=== PATIENT | female | born 2000 | race Two or more races ===

== ENCOUNTER 2023-01-27 07:08 | Emergency (ER) | payer SELFPAY ==
[~2023-01-27] VITALS: Ht 157.5 cm; Wt 48.9 kg
[2023-01-27 07:44] VITALS: BP 129/95
[2023-01-27] MEDS ORDERED: ACETAMINOPHEN 500 MG TAB PO ONE (08:00)
[2023-01-27] MEDS ORDERED: NEOMYCIN-BACITRACIN-POLYM UNITDOSE PKG TOP OINT TOP ONE (09:45)
[2023-01-27] MEDS ORDERED: KETOROLAC TROMETH 30 MG/ML 1ML VIAL IM ONE (10:30)
[2023-01-27] MEDS ORDERED: IBUP1TAB5 PO (10:34)
== END 2023-01-27 10:58 | disposition home or self-care (01) ==
LOC: ER 07:08
DX: S00.83XA Contusion of other part of head, initial encounter (principal); S80.212A Abrasion, left knee, initial encounter; S80.211A Abrasion, right knee, initial encounter; V89.2XXA Person injured in unspecified motor-vehicle accident, traffic, initial encounter; Y93.89 Activity, other specified; Y92.89 Other specified places as the place of occurrence of the external cause; Y99.8 Other external cause status
CPT/HCPCS: 12011; 70450; 70486; 81025; 96372; 99285; J1885